=== PATIENT | female | born 1935 | race Caucasian/White ===

== ENCOUNTER 2021-02-08 07:36 | Day surgery (SDC) | payer MEDICARE, OTHER ==
[2021-02-08] MEDS ORDERED: Depo-Medrol 40 MG/ML IM ONE (07:37)
[2021-02-08] MEDS ORDERED: Sodium Chloride 0.9(Preservative Free) 10 ML IJ ONE (07:37)
[2021-02-08] MEDS ORDERED: DIPRIVAN 200 MG/20 ML IV ONE (08:53)
--- NOTE | 2021-02-08 09:47 | XRAY ---
Indication: Left L3-L5 transforaminal SIXTO. Intraoperative fluoroscopy provided for 27 seconds. 4 digital spot image submitted for interpretation demonstrates posterior needle tips projecting over the expected left L3 and L4 nerve roots. Small amount of contrast injected for needle tip placement. Correlate with intraoperative findings/report.
--- NOTE | 2021-02-08 11:23 | XRAY ---
27 seconds fluoroscopy time in surgery for left L3-L5 transforaminal SIXTO.
[2021-02-08] MEDS ORDERED: Lactated Ringers 1,000 ML IV ONE (15:02)
== END 2021-02-08 09:23 | disposition home or self-care (01) ==
LOC: SDC-PAIN 07:36
PROVIDERS: ATTEND Psychiatry & Neurology Pain Medicine
DX: M54.16 Radiculopathy, lumbar region (principal); Z79.899 Other long term (current) drug therapy
CPT/HCPCS: 64483; 64484; 64635; 64636; 72100; 77003; 99100; J1030; J2704; Q9967

== ENCOUNTER 2021-03-01 06:59 | Day surgery (SDC) | payer MEDICARE, OTHER ==
[2021-03-01] MEDS ORDERED: Depo-Medrol 40 MG/ML IM ONE (07:00)
[2021-03-01] MEDS ORDERED: BUPIVACAINE 0.5% VIAL IJ ONE (07:00)
[2021-03-01] MEDS ORDERED: DIPRIVAN 200 MG/20 ML IV ONE (08:22)
--- NOTE | 2021-03-01 10:21 | XRAY ---
Indication: Bilateral greater tuberosity injections. Intraoperative fluoroscopy provided for 26 seconds. 2 digital spot images submitted for interpretation demonstrates needle tip projecting lateral to the left and right greater tuberosities. Small amount of contrast injected for both needle tip placement. Correlate with intraoperative findings/report. Incidental old left intertrochanteric fracture with intact orthopedic hardware.
--- NOTE | 2021-03-01 10:44 | XRAY ---
26 seconds fluoroscopy time in surgery for injections of the greater trochanters of both hips.
[2021-03-01] MEDS ORDERED: Lactated Ringers 1,000 ML IV ONE (12:24)
== END 2021-03-01 08:50 | disposition home or self-care (01) ==
LOC: SDC-PAIN 06:59
PROVIDERS: ATTEND Psychiatry & Neurology Pain Medicine
DX: M70.62 Trochanteric bursitis, left hip (principal); M70.61 Trochanteric bursitis, right hip; Z79.899 Other long term (current) drug therapy
CPT/HCPCS: 20610; 73521; 77002; J1030; J2704; Q9966

== ENCOUNTER 2021-04-05 09:43 | Day surgery (SDC) | payer MEDICARE, OTHER ==
[2021-04-05] MEDS ORDERED: Depo-Medrol 40 MG/ML IM ONE (09:44)
[2021-04-05] MEDS ORDERED: BUPIVACAINE 0.5% VIAL IJ ONE (09:44)
[2021-04-05] MEDS ORDERED: Lactated Ringers 1,000 ML IV ONE (11:15)
[2021-04-05] MEDS ORDERED: DIPRIVAN 200 MG/20 ML IV ONE (11:17)
--- NOTE | 2021-04-05 12:39 | XRAY ---
Indication: Left hip and greater trochanter bursa injections. Intraoperative fluoroscopy provided for 31 seconds. 2 digital spot image submitted for interpretation demonstrates needle tip projecting lateral to left femur neck. Second needle tip lateral to greater trochanter. Small amount of contrast injected for both needle tip placement. Correlate with intraoperative findings/report. Incidental old proximal femur fracture with incompletely visualized orthopedic hardware.
--- NOTE | 2021-04-05 14:06 | XRAY ---
31 seconds of fluoroscopy was used in surgery for a left intra-articular & greater trochanteric bursa injection.
== END 2021-04-05 11:43 | disposition home or self-care (01) ==
LOC: SDC-PAIN 09:43
PROVIDERS: ATTEND Psychiatry & Neurology Pain Medicine
DX: M16.12 Unilateral primary osteoarthritis, left hip (principal); I10 Essential (primary) hypertension; N39.0 Urinary tract infection, site not specified; D64.9 Anemia, unspecified; Z79.899 Other long term (current) drug therapy
CPT/HCPCS: 20610; 73502; 77002; J1030; J2704; Q9966